=== PATIENT | female | born 1965 | race Caucasian/White ===

== ENCOUNTER 2017-07-11 14:31 | Emergency (ER) | payer OTHER ==
[~2017-07-11] VITALS: Ht 170.2 cm; Wt 71.2 kg
== END 2017-07-11 19:30 | disposition home or self-care (01) ==
LOC: ER 14:31
DX: T78.49XA Other allergy, initial encounter (principal); X58.XXXA Exposure to other specified factors, initial encounter

== ENCOUNTER → 2018-06-30 | Emergency (ER) | payer OTHER ==
[~2018-06-30] VITALS: Ht 167.6 cm; Wt 68.0 kg
== END | disposition left against medical advice (07) ==
LOC: ER 11:49
DX: Z53.20 Procedure and treatment not carried out because of patient's decision for unspecified reasons (principal)